=== PATIENT | female | born 1995 | race Caucasian/White ===

== ENCOUNTER 2021-07-06 02:29 | Emergency (ER) | payer BC ==
[~2021-07-06] VITALS: Ht 170.2 cm; Wt 63.5 kg
--- NOTE | 2021-07-06 02:34 | NUR ---
ER examining patient in the triage room.
[2021-07-06 02:35] VITALS: BP_SYST 116
--- NOTE | 2021-07-06 02:40 | NUR ---
Patient to ER bed 3 to gown for evaluation. Side rails up. Report given to Drake CONTRERAS.
[2021-07-06] MEDS ORDERED: IBUPROFEN 800 MG TABLET PO ONE (02:45)
--- NOTE | 2021-07-06 02:48 | NUR ---
Spoke to officer Rodolfo and states [facility]a was on scene today.Case # [id number].
--- NOTE | 2021-07-06 03:29 | NUR ---
Pt back from x-ray.
[2021-07-06 04:21] VITALS: BP_SYST 114
--- NOTE | 2021-07-06 04:55 | NUR ---
Patient given written and verbal discharge instructions and verbalizes understanding. ER MD discussed with patient the results and treatment provided. Patient in stable condition. ID arm band removed. Patient educated on pain management and to follow up with PMD. Opportunity for questions provided and answered.
== END 2021-07-06 04:55 | disposition home or self-care (01) ==
LOC: SED 02:29
DX: S09.90XA Unspecified injury of head, initial encounter (principal); S19.9XXA Unspecified injury of neck, initial encounter; Y04.0XXA Assault by unarmed brawl or fight, initial encounter; Y93.89 Activity, other specified; Y92.89 Other specified places as the place of occurrence of the external cause; Y99.8 Other external cause status
CPT/HCPCS: 70450-TC; 72125-TC; 76376; 81025; 99284